=== PATIENT | male | born 1950 | race Two or more races ===

== ENCOUNTER 2024-11-16 12:07 | Inpatient (IN) | payer OTHER ==
[~2024-11-16] VITALS: Ht 170.2 cm; Wt 80.5 kg
--- NOTE | 2024-11-16 13:03 | ED.PDOC ---
HPI Comments 74-year-old male presents with a chief complaint of hypertension. Patient mentions that he had a doctors appointment with his transportation services representative this morning, Dr. Benavidez, and was referred to the ER due to his blood pressure being high. Patients blood pressure in triage was 226/108. Patient denies any headache at this time, but states that he does occasionally get dizzy. Patient is poor historian and does not know what medication he takes. Patient however states compliance with his blood pressure medications. PMHx: HTN PSHx: Bilateral Knee Repair HPI: Poor Historian. REVIEW OF SYSTEMS: CONSTITUTIONAL: Denies acute: fever, diaphoresis, chills, generalized weakness. HEAD: Denies acute: headache, photophobia Eyes: Denies acute: Double vision, vision loss, eye pain, eye discharge. EARS: Denies acute: tinnitus, hearing loss, ear discharge, ear pain, THROAT: Denies acute: sore throat, swelling, difficulty swallowing , pain with swallowing, change in voice. NECK: Denies acute: neck pain, neck swelling, stiff neck. HEART: Denies acute : chest pain, palpitations, LUNGS: Denies acute: SOB, wheezing, cough, hemoptysis ABDOMEN: Denies acute: abdominal pain, Nausea, Vomiting, diarrhea, melena , hematemesis, hematochezia SKIN: Denies acute: rash, redness, lesions, itchiness. EXTREMITIES: Denies acute: calf pain, numbness, tingling, weakness, denies pain in extremity. Denies acute: Low back pain. Neuro: Denies acute: focal neurological deficit, motor or sensory focal neurological deficit, tremors, seizure like activity, confusion, dizziness, change in mental status, loss of bowel or bladder function, cauda equina like symptoms. : Denies acute: dysuria, hematuria, flank pain, increase in urinary frequency. PSYCH: Denies acute: hallucination, suicidal ideation, homicidal ideation. PHYSICAL EXAM: General: ---no-----acute distress, awake and alert. Head: normocephalic, atraumatic. Neck: supple, trachea is midline, no swelling. Throat: Normal phonation. Eyes:, no erythema, no purulent discharge, no proptosis, no icterus. Heart: regular rate, regular rhythm, no significant murmur appreciated. Lungs: no apparent respiratory distress, Able to speak in full sentences. No wheezing, no rhonchi, no crackles. No stridors Clear to auscultation bilaterally. Abdomen: non tender to palpation, non distended, soft, no guarding, no rebound, + bowel sounds. Neuro: Awake, Alert, oriented to name, self, situation, follows commands GCS=15. Speech is normal. Skin: no petechia, no purpura, no cyanosis, non-pale, not jaundice. Lower extremities: --no - Pitting edema no deformity, no focal swelling, no calf TTP. Makes eye contact. moves all four extremities. Face: no apparent facial droop. Ambulating in the ED independently. No nystagmus. No nuchal rigidity, Kernig's sign, Brudzinski's sign, no meningeal signs. ED COURSE: Chief Complaint: High Blood Pressure Time Seen by MD: 12:45 Primary Care Provider: CHIKA Allergies: Coded Allergies: NO KNOWN ALLERGIES (Unverified , 11/16/24) Home Meds Active Scripts Misc. Devices (Blood Pressure Monitor) Monitor Kit, EA XX DAILY, #1 CHECK BLOOD PRESSURE DAILY AND KEEP SYSTOLIC BP 100-140 AND DIASTOLIC BP 60-80 Prov:SUNSHINE NASCIMENTO MD 11/17/24 Clonidine Hydrochloride (Clonidine Hcl) 0.1 Mg Tab, 0.1 MG PO TID PRN, #30 TAB TAKE IT NEEDED FOR SYSTOLIC BLOOD PRESSURE ABOVE 150 OR DIASTOLIC BLOOD PRESSURE ABOVE 90 Prov:SUNSHINE NASCIMENTO MD 11/17/24 Hydralazine Hcl (Hydralazine Hcl) 50 Mg Tab, 1 TAB PO BID, #90 TAB 3 Refills Prov:SUNSHINE NASCIMENTO MD 11/17/24 Metoprolol Succinate (Metoprolol Succinate Er) 25 Mg Tab, 1 TAB PO DAILY, #30 TAB 1 Refill Prov:SUNSHINE NASCIMENTO MD 11/17/24 Lisinopril (Lisinopril) 40 Mg Tab, 1 TAB PO DAILY@DINNER, #90 TAB 5 Refills Prov:SUNSHINE NASCIMENTO MD 11/17/24 Hydrochlorothiazide (Hydrochlorothiazide) 25 Mg Tab, 1 TAB PO DAILY, #30 TAB 5 Refills Prov:SUNSHINE NASCIMENTO MD 11/17/24 Reported Medications Atorvastatin Calcium (ATORVASTATIN CALCIUM) 10 Mg Tab, 1 TAB PO DAILY, #30 TAB 5 Refills 11/16/24 Aspirin (Aspirin Ec) 81 Mg Tab, 81 MG PO DAILY, TAB 11/16/24 Alendronate Sodium (Alendronate Sodium) 70 Mg Tab, 1 TAB PO QWEEKLY, #4 TAB 3 Refills 11/16/24 Allopurinol (ZYLOPRIM TABLET) 100 Mg Tb, 1 TAB PO DAILY, #30 TAB 5 Refills 11/16/24 Atorvastatin Calcium (Lipitor) 10 Mg Tab, 1 TAB PO QPM, #90 TAB 1 Refill 11/16/24 Tamsulosin Hcl (Flomax) 0.4 Mg Cap, 1 CAP PO DAILY, #30 CAP 11 Refills 11/16/24 Levothyroxine Sodium (Levothyroxine Sodium) 25 Mcg Tab, 1 TAB PO DAILY, #30 TAB 5 Refills 11/16/24 Meclizine HCl (Meclizine) 25 Mg Chw, 25 MG PO, CHW 11/16/24 Information Source: Patient Mode of Arrival: Ambulatory Past Medical History PAST MEDICAL HISTORY: HTN Surgical History: Denies all surgeries Family History Family History: Reviewed,noncontributory to illness Social History Smoker: Non-Smoker Alcohol: Denies ETOH Use Drugs: Denies Drug Use Lives In: Home Was a procedure done? Was a procedure done?: No CP Differential Dx Differential Diagnosis: N/A Differential Diagnosis: Other (DDX include renal disease, thyroid disease, electrolyte abnormality, increased salt intake, medications non-compliance, undiagnosed HTN, Hypertensive crisis, hypertensive urgency., drug toxicity.) X-Ray, Labs, Meds, VS Vital Signs Date Time Temp Pulse Resp B/P (MAP) Pulse Ox O2 Delivery O2 Flow Rate FiO2 11/16/24 15:52 97.6 60 18 200/90 (126) 96 97.6 11/16/24 15:43 60 200/90 11/16/24 15:43 60 200/90 11/16/24 13:39 62 224/90 11/16/24 13:28 63 16 95 Room Air* 0 21 6/11/25 13:28 98.2 62 19 224/90 (134) 94 98.2 11/16/24 12:45 64 11/16/24 12:35 98.0 67 18 226/108 (147) 96 98.0 205/94 (131) Lab Test 11/16/24 16:04 11/16/24 14:11 11/16/24 13:06 11/16/24 12:44 Range/Units Troponin I High Sensitivity 8 7 6 </=54 ng/L White Blood Count 6.9 4.4-10.8 10^3/uL Red Blood Count 5.19 4.5-5.90 10^6/uL Hemoglobin 15.6 13.5-17.5 g/dL Hematocrit 44.9 41.0-53.0 % Mean Corpuscular Volume 86.5 80.0-100.0 fL Mean Corpuscular Hemoglobin 30.0 28.0-32.0 pg Mean Corpuscular Hemoglobin Concent 34.6 32.0-36.0 g/dL Red Cell Distribution Width 15.2 H 11.8-14.3 % Platelet Count 126 L 140-450 10^3/uL Mean Platelet Volume 8.9 6.9-10.8 fL Neutrophils (%) (Auto) 52.6 37.0-80.0 % Lymphocytes (%) (Auto) 33.6 10.0-50.0 % Monocytes (%) (Auto) 5.5 0.0-12.0 % Eosinophils (%) (Auto) 7.1 H 0.0-7.0 % Basophils (%) (Auto) 1.2 0.0-2.0 % Neutrophils # (Auto) 3.6 1.6-8.6 10 ^3/uL Lymphocytes # (Auto) 2.3 0.4-5.4 10 ^3/uL Monocytes # (Auto) 0.4 0-1.3 10 ^3/uL Eosinophils # (Auto) 0.5 0-0.8 10 ^3/uL Basophils # (Auto) 0.1 0-0.2 10 ^3/uL Nucleated Red Blood Cells 0.1 % Sodium Level 143 136-145 mmol/L Potassium Level 3.5 3.5-5.1 mmol/L Chloride Level 107 98-107 mmol/L Carbon Dioxide Level 24 20-31 mmol/L Anion Gap 12 5-15 Blood Urea Nitrogen 10 9-23 mg/dL Creatinine 0.94 0.700-1.30 mg/dL Glomerular Filtration Rate Calc 84 >90 mL/min BUN/Creatinine Ratio 10.6 10.0-20.0 Serum Glucose 104 74-106 mg/dL Calcium Level 10.2 8.7-10.4 mg/dL Total Bilirubin 1.0 0.2-1.0 mg/dL Aspartate Amino Transferase (AST) 26 13-40 U/L Alanine Aminotransferase (ALT) 23 7-40 U/L Alkaline Phosphatase 96 46-116 U/L B-Type Natriuretic Peptide 113.20 0-100 pg/mL Total Protein 8.1 5.7-8.2 g/dL Albumin 4.8 3.2-4.8 g/dL Urine Color Colorless Yellow Urine Clarity Clear Clear Urine pH 6.5 5.0-9.0 Urine Specific [place] 1.006 1.001-1.035 Urine Protein Negative Negative Urine Ketones Negative Negative Urine Blood 1+ H Negative /uL Urine Nitrite Negative Negative Urine Bilirubin Negative Negative Urine Urobilinogen Normal Negative mg/dL Urine Leukocyte Esterase Negative Negative /uL Urine RBC 4 0 - 3 /hpf Urine Microscopic WBC < 1 0-3 /HPF Urine Squamous Epithelial Cells None seen <5 /hpf Urine Bacteria None seen None Seen /hpf Urine Glucose Normal Normal mg/dL PATIENT: TAWNY CATHERINECCT: [id number]: [id number] : 1950 LOC: ER ROOM / BED: / AGE / SEX: 74 / M ADM STATUS: REG ER SERVICE 1239 ORDERING PHYSICIAN: MEGAN VENEGAS DO PROCEDURE(s): HWOCT - HEAD WITHOUT CONTRAST REASON: HTN ORDER NUMBER(s): [id number], ACCESSION NUMBER(s): [id number] CT HEAD WITHOUT CONTRAST Indication: HTN EXAM DATE: 11/16/2024 12:51 PM COMPARISON: None TECHNIQUE: CT of the head without intravenous contrast. RADIATION DOSE: CTDIvol: 55.02 mGy, DLP: 974.26 mGy*cm FINDINGS: There is subtle hyperdensity in the right occipital lobe measuring 9 mm. There is no extra-axial fluid, mass, mass effect or midline shift. The ventricles are midline and normal in size. Basilar cisterns are patent. There are mild periventricular and subcortical white matter chronic microvascular ischemic changes. Mild global cerebral volume loss. The paranasal sinuses and mastoids are well-pneumatized. Imaged portion of the orbits are unremarkable. IMPRESSION: 1. Subtle hyperdensity in the right occipital lobe measuring 9 mm. Recommend MRI brain with and without contrast to evaluate and exclude hemorrhage/subacute hemorrhage, vascular malformation/DVA. 2. Mild chronic microvascular ischemic changes. 3. Mild global cerebral volume loss. ATED BY: ESTHELA MUÑIZ MD DICTATED DATE/TIME: 11/16/241324 SIGNED BY: ESTHELA MUÑIZ MD SIGNED DATE/TIME: 11/16/241324 PATIENT: BRANDO CATHERINE ACCT: [id number] UNIT: [id number] : 1950 LOC: ER ROOM / BED: / AGE / SEX: 74 / M ADM STATUS: REG ER SERVICE 1239 ORDERING PHYSICIAN: MEGAN VENEGAS DO PROCEDURE(s): CXRP - CHEST PORTABLE REASON: HTN ORDER NUMBER(s): [id number], ACCESSION NUMBER(s): [id number] CHEST RADIOGRAPH Indication: HTN Technique: Single frontal view of the chest was obtained Comparison: None FINDINGS: Lines and Tubes: None Lungs: No focal consolidation. Elevation of the right hemidiaphragm. Pleura: No effusion. No pneumothorax. Cardiomediastinal contours: Unremarkable Bones: No acute osseous abnormality. IMPRESSION: No acute cardiopulmonary disease. ATED BY: IZZY MARTINO DO DICTATED DATE/TIME: 11/16/24 1314 SIGNED BY: IZZY MARTINO DO SIGNED DATE/TIME: 11/16/241313 [place] [address] Ph: [phone] DIAGNOSTIC IMAGING Diagnostic Imaging Report : [id number] Signed PATIENT: BRANDO CATHERINE ACCT: [id number] UNIT: [id number] : 1950 LOC: OVERFLOW ROOM / BED: 1018-ERD / A AGE / SEX: 74 / M ADM STATUS: ADM IN SERVICE 1626 ORDERING PHYSICIAN: MEGAN VENEGAS DO PROCEDURE(s): HDWCT - HEAD CONTRAST ONLY REASON: HTN ORDER NUMBER(s): [id number], ACCESSION NUMBER(s): [id number] EXAM: CT HEAD CONTRAST ONLY INDICATION: HTN TECHNIQUE: CT of the head without intravenous contrast. Radiation Dose Information: CT Dose: CTDI volume is 54.72 mGy. Dose-length product is 968.76 mGy*cm The dose indicators for CT are the volume Computed Tomography (CT) Dose Index (CTDIvol) and the Dose Length Product (DLP), and are measured in units of mGy and mGy-cm, respectively. These indicators are not patient dose, but values generated from the CT scanner acquisition factors. The report includes radiation exposure data for exposures received during this examination. COMPARISON: CT HEAD WITHOUT CONTRAST on DOS: 11/16/24 FINDINGS: There is no evidence of acute intracranial hemorrhage, extra-axial collection, mass effect, midline shift, herniation or hydrocephalus. The ventricles, sulci and cisterns are age appropriate. The moore-white differentiation is intact. Patchy periventricular and subcortical white matter hypoattenuation is nonspecific but may be related to small vessel ischemic disease. The visualized paranasal sinuses and mastoid air cells are clear. The surrounding soft tissues and osseous structures are unremarkable. IMPRESSION: 1. No acute intracranial abnormality. 2. No enhancing masses. 3. No CT findings displaced skull fractures. ATED BY: SHIRLEY MEDINA Jr., DO DICTATED DATE/TIME: 11/16/241721 SIGNED BY: SHIRLEY MEDINA Jr., SIGNED DATE/TIME: 11/16/241721 CC: Time of 1ST Reevaluation: 13:15 Reevaluation 1ST: Unchanged Time of 2ND Reevaluation: 16:27 (The case was discussed with the admitting team (HPI, physical exam, labs and diagnostic tests that were available at the time of disposition, ED course, treatment plan) on the phone. They agreed to admit the patient to their service and assume care of this patient from this point forward. --- SARITHA. CT BRAIN WITH CONTRAST IS STILL PENDING) Patient Education/Counseling: Diagnosis, Treatment Family Education/Counseling: No Family Present Comments Patient presented with the above HPI.---hypertensive crisis---workup was ini tiated. patient was found with the above mentioned diagnosis. Patient denies any associated symptoms. the following medications were ordered: please refer to order lists of meds and tests obtained by myself Dr. Venegas. Patient ED course and VS have been stabilized. Patient has been reassessed in the ED and remained in a stable condition. Pertinent incidental findings were discussed with the patient and/or family. Patient/family voices understanding and is agreeable with plan. Patient has been observed in the ED adequate length of time to insure improvement/stability. Escalation of care considered: Consideration of escalation to observation or admission CT scan of the head was obtained which shows some nonspecific findings. CT scan of the head with contrast was obtained to rule out any potential bleed. Patient was ADMITTED to the medicine team for further evaluation and treatment of their presentation. All the reports of any imaging studies that were ordered by myself were reviewed by myself. Departure 1 Departure Time of Disposition: 14:50 Impression: Primary Impression: Hypertensive urgency Disposition: ADMITTED INPATIENT Admit to: Tele Condition: Guarded e-Prescriptions [facility]. Devices (Blood Pressure Monitor) Monitor Kit EA XX DAILY, #1 CHECK BLOOD PRESSURE DAILY AND KEEP SYSTOLIC BP 100-140 AND DIASTOLIC BP 60-80 Prov: SUNSHINE NASCIMENTO MD 11/17/24 Clonidine Hydrochloride (Clonidine Hcl) 0.1 Mg Tab 0.1 MG PO TID PRN, #30 TAB TAKE IT NEEDED FOR SYSTOLIC BLOOD PRESSURE ABOVE 150 OR DIASTOLIC BLOOD PRESSURE ABOVE 90 Prov: SUNSHINE NASCIMENTO MD 11/17/24 Hydralazine Hcl (Hydralazine Hcl) 50 Mg Tab 1 TAB PO BID, #90 TAB 3 Refills Prov: SUNSHINE NASCIMENTO MD 11/17/24 Metoprolol Succinate (Metoprolol Succinate Er) 25 Mg Tab 1 TAB PO DAILY, #30 TAB 1 Refill Prov: SUNSHINE NASCIMENTO MD 11/17/24 Lisinopril (Lisinopril) 40 Mg Tab 1 TAB PO DAILY@DINNER, #90 TAB 5 Refills Prov: SUNSHINE NASCIMENTO MD 11/17/24 Hydrochlorothiazide (Hydrochlorothiazide) 25 Mg Tab 1 TAB PO DAILY, #30 TAB 5 Refills Prov: SUNSHINE NASCIMENTO MD 11/17/24 Discharged With: Self Critical Care Note Critical Care Time?: Yes (55 min-critical care time only) Heart Score Heart Score: Heart Score Response (Comments) Value History N/A 0 EKG N/A 0 Age N/A 0 Risk Factors N/A 0 Troponin N/A 0 Total 0 I personally scribed for MEGAN VENEGAS DO ([email or web address]) on 11/16/24 at 13:03. Electronically submitted by William De Los Santos ([email or web address]). I personally scribed for MEGAN VENEGAS DO ([email or web address]) on 11/16/24 at 13:50. Electronically submitted by William De Los Santos ([email or web address]). I personally scribed for MEGAN VENEGAS DO ([email or web address]) on 11/16/24 at 13:51. Electronically submitted by William De Los Santos ([email or web address]). I personally scribed for MEGAN VENEGAS DO ([email or web address]) on 11/16/24 at 20:12. Electronically submitted by William De Los Santos ([email or web address]). MEGAN VENEGAS DO Nov 16, 2024 13:03
[2024-11-16 13:07] LABS: Urine Bacteria None Seen /hpf (None Seen)
--- NOTE | 2024-11-16 13:17 | DVH ---
CHEST RADIOGRAPH Indication: HTN Technique: Single frontal view of the chest was obtained Comparison: None FINDINGS: Lines and Tubes: None Lungs: No focal consolidation. Elevation of the right hemidiaphragm. Pleura: No effusion. No pneumothorax. Cardiomediastinal contours: Unremarkable Bones: No acute osseous abnormality. IMPRESSION: No acute cardiopulmonary disease.
[2024-11-16 13:27] LABS: Urine Blood 1+ /uL (Negative); Urine Clarity Clear (Clear); Urine Color Colorless (Yellow); Urine Protein, UAD Negative (Negative); Urine Specific Gravity 1.006 (1.001-1.035); Urine Squamous Epithelial Cell None Seen /hpf (<5); Urine Urobilinogen Normal (Negative); Urine WBC < 1 /HPF (0-3); Urine pH 6.5 (5.0-9.0)
--- NOTE | 2024-11-16 13:27 | DVH ---
CT HEAD WITHOUT CONTRAST Indication: HTN EXAM DATE: 11/16/2024 12:51 PM COMPARISON: None TECHNIQUE: CT of the head without intravenous contrast. RADIATION DOSE: CTDIvol: 55.02 mGy, DLP: 974.26 mGy*cm FINDINGS: There is subtle hyperdensity in the right occipital lobe measuring 9 mm. There is no extra-axial flui d, mass, mass effect or midline shift. The ventricles are midline and normal in size. Basilar cistern s are patent. There are mild periventricular and subcortical white matter chronic microvascular ische rossi changes. Mild global cerebral volume loss. The paranasal sinuses and mastoids are well-pneumatized. Imaged portion of the orbits are unremarkabl e. IMPRESSION: 1. Subtle hyperdensity in the right occipital lobe measuring 9 mm. Recommend MRI brain with and with out contrast to evaluate and exclude hemorrhage/subacute hemorrhage, vascular malformation/DVA. 2. Mild chronic microvascular ischemic changes. 3. Mild global cerebral volume loss.
[2024-11-16 13:28] VITALS: PULSE 63; RESP 16; O2SAT 95
[2024-11-16 13:30] LABS: Basophils # (auto) 0.1 10 ^3/uL (0-0.2); Basophils % (auto) 1.2 % (0.0-2.0); Eosinophils # (auto) 0.5 10 ^3/uL (0-0.8); Eosinophils % (auto) 7.1 % (0.0-7.0); Hematocrit 44.9 % (41.0-53.0); Hemoglobin 15.6 g/dL (13.5-17.5); Lymphocytes # (auto) 2.3 10 ^3/uL (0.4-5.4); Lymphocytes % (auto) 33.6 % (10.0-50.0); Mean Corpuscular Hgb Conc. 34.6 g/dL (32.0-36.0); Mean Corpuscular Volume 86.5 fL (80.0-100.0); Monocytes # (auto) 0.4 10 ^3/uL (0-1.3); Monocytes % (auto) 5.5 % (0.0-12.0); Neutrophils # (auto) 3.6 10 ^3/uL (1.6-8.6); Neutrophils % (auto) 52.6 % (37.0-80.0); Nucleated Red Blood Cells % 0.1 %; Platelet Count (auto) 126 10^3/uL (140-450); Red Blood Cells 5.19 10^6/uL (4.5-5.90); Red Cell Distribution Width 15.2 % (11.8-14.3); White Blood Cell 6.9 10^3/uL (4.4-10.8)
[2024-11-16 13:39] LABS: Alanine Aminotransferase 23 U/L (7-40); Albumin 4.8 g/dL (3.2-4.8); Alkaline Phosphatase 96 U/L (46-116); Anion Gap 12 (5-15); Aspartate Aminotransferase 26 U/L (13-40); BUN/Creatinine Ratio 10.6 (10.0-20.0); Blood Urea Nitrogen 10 mg/dL (9-23); Calcium 10.2 mg/dL (8.7-10.4); Carbon Dioxide 24 mmol/L (20-31); Chloride 107 mmol/L (98-107); Glucose 104 mg/dL (74-106); Potassium 3.5 mmol/L (3.5-5.1); Sodium 143 mmol/L (136-145); Total Protein 8.1 g/dL (5.7-8.2)
[2024-11-16] MEDS: LABETALOL HCL 20 MG/4 ML VL IV ONE ×2 (13:39→15:43)
[2024-11-16] MEDS ORDERED: LABETALOL HCL 20 MG/4 ML VL IV PRN (16:30)
[2024-11-16] MEDS ORDERED: NITROGLYCERIN 0.4 MG SL TAB SL PRN ×2 (16:30→17:45)
[2024-11-16] MEDS ORDERED: ONDANSETRON HCL 4 MG/2 ML VIAL IV PRN (16:30)
[2024-11-16] MEDS ORDERED: ACETAMINOPHEN 325 MG TAB PO PRN (16:30)
[2024-11-16] MEDS ORDERED: MORPHINE SULFATE INJ 2 MG/ml SYRG IV PRN (16:30)
[2024-11-16] MEDS ORDERED: HYDROcodone-ACET 5/325MG TAB PO PRN (16:30)
[2024-11-16] MEDS: cloNIDine HCL 0.1 MG TAB PO PRN (16:52)
[2024-11-16] MEDS: LABETALOL HCL 200 MG TAB PO SCH (16:53)
[2024-11-16] MEDS: LOSARTAN POTASSIUM 50 MG TAB PO SCH (16:53)
--- NOTE | 2024-11-16 17:04 | DVHINCON2 ---
Date of service: Nov 16, 2024 History of Present Illness 74 yo M office pt of mine, hx of HTN, non compliance sent from office with SBP >200 . pt had feeling "like drunk" and tired. trops are - Past Medical History reviewed Allergies: Coded Allergies: NO KNOWN ALLERGIES (Unverified , 11/16/24) Current Medications Current Medications Medications (Trade) Dose Ordered Sig/Geetha Route PRN Reason Start Time Stop Time Status Last Admin Nitroglycerin (Ntrostat Sublingual) 0.4 mg Q5MINP PRN SL FOR CHEST PAIN 11/16/24 16:30 11/16/24 16:27 DC Morphine Sulfate 2 mg Q30M PRN IV FOR CHEST PAIN 11/16/24 16:30 11/16/24 16:27 DC Labetalol HCl (Labetalol HCl) 5 mg Q2HPRN PRN IV SBP>180 11/16/24 16:30 Labetalol HCl (Normodyne Tablet) 200 mg Q12HR PO 11/16/24 16:30 11/16/24 16:53 Losartan Potassium (Cozaar Tablet) 50 mg BID PO 11/16/24 16:30 11/16/24 16:53 Clonidine HCl (Catapres Tablet) 0.1 mg Q4HP PRN PO SBP>160 or DBP>105 11/16/24 16:30 11/16/24 16:52 Ondansetron HCl (Zofran) 4 mg Q4HPRN PRN IV NAUSEA / VOMITING 11/16/24 16:30 Acetaminophen (Tylenol Tablet) 650 mg Q6HP PRN PO MODERATE PAIN (4-6 PAIN SCALE) 11/16/24 16:30 Acetaminophen/ Hydrocodone Bitart ([place] 5/325MG Tab) 1 tab Q6HPRN PRN PO SEVERE PAIN (7-10 PAIN SCALE) 11/16/24 16:30 Review of Systems 10 pt ros otherwise negative Vital Signs Vital Signs Date Time Temp Pulse Resp B/P (MAP) Pulse Ox O2 Delivery O2 Flow Rate FiO2 11/16/24 16:53 200/88 11/16/24 16:53 68 11/16/24 16:26 16 100 11/16/24 15:52 97.6 97.6 11/16/24 13:28 Room Air* 0 21 Physical Exam nad s1 s2 rrr ctab soft nt/nd no edema Labs/Diagnostic Data Labs Test 11/16/24 16:04 11/16/24 13:06 11/16/24 12:44 Range/Units Troponin I High Sensitivity 8 </=54 ng/L White Blood Count 6.9 4.4-10.8 10^3/uL Red Blood Count 5.19 4.5-5.90 10^6/uL Hemoglobin 15.6 13.5-17.5 g/dL Hematocrit 44.9 41.0-53.0 % Mean Corpuscular Volume 86.5 80.0-100.0 fL Mean Corpuscular Hemoglobin 30.0 28.0-32.0 pg Mean Corpuscular Hemoglobin Concent 34.6 32.0-36.0 g/dL Red Cell Distribution Width 15.2 H 11.8-14.3 % Platelet Count 126 L 140-450 10^3/uL Mean Platelet Volume 8.9 6.9-10.8 fL Neutrophils (%) (Auto) 52.6 37.0-80.0 % Lymphocytes (%) (Auto) 33.6 10.0-50.0 % Monocytes (%) (Auto) 5.5 0.0-12.0 % Eosinophils (%) (Auto) 7.1 H 0.0-7.0 % Basophils (%) (Auto) 1.2 0.0-2.0 % Neutrophils # (Auto) 3.6 1.6-8.6 10 ^3/uL Lymphocytes # (Auto) 2.3 0.4-5.4 10 ^3/uL Monocytes # (Auto) 0.4 0-1.3 10 ^3/uL Eosinophils # (Auto) 0.5 0-0.8 10 ^3/uL Basophils # (Auto) 0.1 0-0.2 10 ^3/uL Nucleated Red Blood Cells 0.1 % Sodium Level 143 136-145 mmol/L Potassium Level 3.5 3.5-5.1 mmol/L Chloride Level 107 98-107 mmol/L Carbon Dioxide Level 24 20-31 mmol/L Anion Gap 12 5-15 Blood Urea Nitrogen 10 9-23 mg/dL Creatinine 0.94 0.700-1.30 mg/dL Glomerular Filtration Rate Calc 84 >90 mL/min BUN/Creatinine Ratio 10.6 10.0-20.0 Serum Glucose 104 74-106 mg/dL Calcium Level 10.2 8.7-10.4 mg/dL Total Bilirubin 1.0 0.2-1.0 mg/dL Aspartate Amino Transferase (AST) 26 13-40 U/L Alanine Aminotransferase (ALT) 23 7-40 U/L Alkaline Phosphatase 96 46-116 U/L B-Type Natriuretic Peptide 113.20 0-100 pg/mL Total Protein 8.1 5.7-8.2 g/dL Albumin 4.8 3.2-4.8 g/dL Urine Color Colorless Yellow Urine Clarity Clear Clear Urine pH 6.5 5.0-9.0 Urine Specific [place] 1.006 1.001-1.035 Urine Protein Negative Negative Urine Ketones Negative Negative Urine Blood 1+ H Negative /uL Urine Nitrite Negative Negative Urine Bilirubin Negative Negative Urine Urobilinogen Normal Negative mg/dL Urine Leukocyte Esterase Negative Negative /uL Urine RBC 4 0 - 3 /hpf Urine Microscopic WBC < 1 0-3 /HPF Urine Squamous Epithelial Cells None seen <5 /hpf Urine Bacteria None seen None Seen /hpf Urine Glucose Normal Normal mg/dL Assessment malignant HTN obesity non compliance HL ckd Plan/Recommendation acs ruled out check echo start clonidine po start po hydralazine cont ARB, cont BB Plan discussed with: Patient CHRISTEL FARR MD Nov 16, 2024 17:03
[2024-11-16] MEDS: IOHEXOL 300 MG/ML 100ML BOTTLE IJ ONE (17:06)
--- NOTE | 2024-11-16 17:24 | DVH ---
EXAM: CT HEAD CONTRAST ONLY INDICATION: HTN TECHNIQUE: CT of the head without intravenous contrast. Radiation Dose Information: CT Dose: CTDI volume is 54.72 mGy. Dose-length product is 968.76 mGy*cm The dose indicators for CT are the volume Computed Tomography (CT) Dose Index (CTDIvol) and the Dose Length Product (DLP), and are measured in units of mGy and mGy-cm, respectively. These indicators are not patient dose, but values generated from the CT scanner acquisition factors. The report includes radiation exposure data for exposures received during this examination. COMPARISON: CT HEAD WITHOUT CONTRAST on DOS: 11/16/24 FINDINGS: There is no evidence of acute intracranial hemorrhage, extra-axial collection, mass effect, midline s hift, herniation or hydrocephalus. The ventricles, sulci and cisterns are age appropriate. The moore-white differentiation is intact. Patchy periventricular and subcortical white matter hypoattenuation is nonspecific but may be related to small vessel ischemic disease. The visualized paranasal sinuses and mastoid air cells are clear. The surrounding soft tissues and osseous structures are unremarkable. IMPRESSION: 1. No acute intracranial abnormality. 2. No enhancing masses. 3. No CT findings displaced skull fractures.
[2024-11-16 20:00] VITALS: PULSE 77; RESP 18; O2SAT 97
[2024-11-16 21:17] VITALS: BP 160/85; PULSE 65; RESP 18; TEMP 97.2; O2SAT 96
[2024-11-16 22:00] VITALS: BP 160/85; PULSE 65; RESP 17; TEMP 97.2; O2SAT 96
[2024-11-16 22:18] VITALS: PULSE 65; RESP 20
[2024-11-16] MEDS: hydrALAZINE HCL 25 MG TAB PO SCH (23:11)
[2024-11-16] MEDS: cloNIDine HCL 0.1 MG TAB PO SCH (23:12)
[2024-11-16] MEDS ORDERED: LISI40TA16 PO (23:13)
[2024-11-16] MEDS ORDERED: ATOR10TA52 PO (23:13)
[2024-11-16] MEDS ORDERED: HYDR25TA4 PO (23:13)
[2024-11-16] MEDS ORDERED: METO25TA93 PO (23:13)
[2024-11-16] MEDS ORDERED: MECL25CH38 PO (23:13)
[2024-11-16] MEDS ORDERED: ALEN70TA74 PO (23:13)
[2024-11-16] MEDS ORDERED: TAMS-35 PO (23:13)
[2024-11-16] MEDS ORDERED: ALL100T PO (23:13)
[2024-11-16] MEDS ORDERED: ATOR10TA PO (23:13)
[2024-11-16] MEDS ORDERED: LEVO25TA6 PO (23:13)
[2024-11-16] MEDS ORDERED: ASPI81TA28 PO (23:13)
[2024-11-17] VITALS (7 sets, daily range): BP systolic 131–178; BP diastolic 68–92; PULSE 50–62; RESP 16–18; TEMP 96.1–97.6; O2SAT 95–98
--- NOTE | 2024-11-17 00:30 | DVHHP2 ---
BENTLEY KELLY ARTIST MODEL 11/17/24 0030: History of Present Illness Reason for Visit: Uncontrolled hypertension History of Present Illness 74-year-old male with past medical history of hypertension presents with complaints of uncontrolled high blood pressure. 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 On arrival to the emergency department patient's blood pressure was noted to be 226/108. Patient also endorses dizziness. States he is compliant with taking his blood pressure medications. However does not know what medications he is on. At this time patient denies fevers, chills, shortness of breath, chest pain, palpitations, leg swelling. States dizziness has improved. Cardiovascular: HTN, hyperipidemia Smoke: No ALCOHOL: none Drugs: None Lives: with Family Review of Systems Constitutional: No: Fever, Chills, Sweats, Weakness, Malaise, Other Eyes: No: Pain, Vision change, Conjunctivae inflammation, Eyelid inflammation, Other, Redness ENT: No: Ear pain, Ear discharge, Nose pain, Nose discharge, Nose congestion, Mouth pain, Mouth swelling, Throat pain, Throat swelling, Other Respiratory: No: Cough, Dry, Shortness of breath, SOB with excertion, Wheezing, Hemoptysis, Pleuritic Pain, Sputum, Wheezing, Other Cardiovascular: Lt Headedness; No: Chest Pain, Palpitations, Orthopnea, Paroxysmal Noc. Dyspnea, Edema, Other Gastrointestinal: No: Nausea, Vomiting, Abdominal Pain, Diarrhea, Constipation, Melena, Hematochezia, Other Genitourinary: No Dysuria, No Frequency, No Incontinence, No Hematuria, No Retention, No Other Musculoskeletal: No: other, neck pain, shoulder pain, arm pain, back pain, hand pain, leg pain, foot pain Skin: No: Rash, Lesions, Jaundice, Bruising, Other Neurological: No: Weakness, Numbness, Incoordination, Change in speech, Confusion, Seizures, Other Allergies: Coded Allergies: NO KNOWN ALLERGIES (Unverified , 11/16/24) Medications Current Medications Medications Dose Ordered Sig/Geetha Route Start Time Stop Time Status Last Admin Dose Admin Labetalol HCl 5 mg Q2HPRN PRN IV 11/16/24 16:30 Labetalol HCl 200 mg Q12HR PO 11/16/24 16:30 11/16/24 23:13 200 MG Clonidine HCl 0.1 mg Q4HP PRN PO 11/16/24 16:30 11/16/24 16:52 0.1 MG Ondansetron HCl 4 mg Q4HPRN PRN IV 11/16/24 16:30 Acetaminophen 650 mg Q6HP PRN PO 11/16/24 16:30 Acetaminophen/ Hydrocodone Bitart 1 tab Q6HPRN PRN PO 11/16/24 16:30 Clonidine HCl 0.1 mg TID PO 11/16/24 22:00 11/16/24 23:12 0.1 MG Hydralazine HCl 25 mg Q8HR PO 11/16/24 22:00 11/16/24 23:11 25 MG Nitroglycerin 0.4 mg Q5MINP PRN SL 11/16/24 17:45 Exam Vital Signs Vital Signs Date Time Temp Pulse Resp B/P (MAP) Pulse Ox O2 Delivery O2 Flow Rate FiO2 11/16/24 23:13 65 160/85 11/16/24 22:00 97.2 17 96 97.2 11/16/24 20:00 Room Air* 0 21 General Appearance: Alert, Oriented X3, Cooperative, No acute distress HEENT: Atraumatic, PERRLA, EOMI Respiratory: Clear to auscultation, Normal air movement Cardiovascular: Regular rate, Normal S1, Normal S2 Abdominal: Normal bowel sounds, Soft, No tenderness Extremities: No clubbing Skin: No rashes, No breakdown Neuro: Normal speech, Strength at 5/5 X4 ext Psych/Mental Status: Mental status NL, Mood NL Labs/Xrays Labs Test 11/16/24 16:04 11/16/24 13:06 11/16/24 12:44 Range/Units Troponin I High Sensitivity 8 </=54 ng/L White Blood Count 6.9 4.4-10.8 10^3/uL Red Blood Count 5.19 4.5-5.90 10^6/uL Hemoglobin 15.6 13.5-17.5 g/dL Hematocrit 44.9 41.0-53.0 % Mean Corpuscular Volume 86.5 80.0-100.0 fL Mean Corpuscular Hemoglobin 30.0 28.0-32.0 pg Mean Corpuscular Hemoglobin Concent 34.6 32.0-36.0 g/dL Red Cell Distribution Width 15.2 H 11.8-14.3 % Platelet Count 126 L 140-450 10^3/uL Mean Platelet Volume 8.9 6.9-10.8 fL Neutrophils (%) (Auto) 52.6 37.0-80.0 % Lymphocytes (%) (Auto) 33.6 10.0-50.0 % Monocytes (%) (Auto) 5.5 0.0-12.0 % Eosinophils (%) (Auto) 7.1 H 0.0-7.0 % Basophils (%) (Auto) 1.2 0.0-2.0 % Neutrophils # (Auto) 3.6 1.6-8.6 10 ^3/uL Lymphocytes # (Auto) 2.3 0.4-5.4 10 ^3/uL Monocytes # (Auto) 0.4 0-1.3 10 ^3/uL Eosinophils # (Auto) 0.5 0-0.8 10 ^3/uL Basophils # (Auto) 0.1 0-0.2 10 ^3/uL Nucleated Red Blood Cells 0.1 % Sodium Level 143 136-145 mmol/L Potassium Level 3.5 3.5-5.1 mmol/L Chloride Level 107 98-107 mmol/L Carbon Dioxide Level 24 20-31 mmol/L Anion Gap 12 5-15 Blood Urea Nitrogen 10 9-23 mg/dL Creatinine 0.94 0.700-1.30 mg/dL Glomerular Filtration Rate Calc 84 >90 mL/min BUN/Creatinine Ratio 10.6 10.0-20.0 Serum Glucose 104 74-106 mg/dL Calcium Level 10.2 8.7-10.4 mg/dL Total Bilirubin 1.0 0.2-1.0 mg/dL Aspartate Amino Transferase (AST) 26 13-40 U/L Alanine Aminotransferase (ALT) 23 7-40 U/L Alkaline Phosphatase 96 46-116 U/L B-Type Natriuretic Peptide 113.20 0-100 pg/mL Total Protein 8.1 5.7-8.2 g/dL Albumin 4.8 3.2-4.8 g/dL Urine Color Colorless Yellow Urine Clarity Clear Clear Urine pH 6.5 5.0-9.0 Urine Specific [place] 1.006 1.001-1.035 Urine Protein Negative Negative Urine Ketones Negative Negative Urine Blood 1+ H Negative /uL Urine Nitrite Negative Negative Urine Bilirubin Negative Negative Urine Urobilinogen Normal Negative mg/dL Urine Leukocyte Esterase Negative Negative /uL Urine RBC 4 0 - 3 /hpf Urine Microscopic WBC < 1 0-3 /HPF Urine Squamous Epithelial Cells None seen <5 /hpf Urine Bacteria None seen None Seen /hpf Urine Glucose Normal Normal mg/dL Assessment/Plan Plan discussed with: Patient My Orders Hypertensive urgency Dizziness Obesity Plan Admit telemetry Cardiology consult. Echocardiogram. As needed antihypertensive for optimal BP management. Continue home medications. MRI brain. Physical therapy evaluation GI ppx pepcid / DVT ppx scd Date of Service: Nov 17, 2024 Billing Provider: SUNSHINE NASCIMENTO MD Common Visit Codes: NOT BILLABLE SUNSHINE NASCIMENTO MD 11/17/24 1500: Review of Systems Allergies: Coded Allergies: NO KNOWN ALLERGIES (Unverified , 11/16/24) Additional Comments Additional Comments Additional Comments Patient's chart is reviewed and discussed with the nurse practitioner. Patient is seen and evaluated. I agree with the nurse practitioner's evaluation, documentation, assessment and care plan as outlined. BENTLEY KELLY NP Nov 17, 2024 00:30 SUNSHINE NASCIMENTO MD Nov 17, 2024 15:00
--- NOTE | 2024-11-17 08:48 | DVH ---
EXAMINATION: MRI BRAIN HEAD WO CONTRAST INDICATION: htn urgency COMPARISON: CT scan of the head performed on 11/16/2024. TECHNIQUE: Multiplanar, multisequence magnetic resonance imaging of the brain was performed without the use of i ntravenous contrast. FINDINGS: No evidence of acute infarct. No intracranial hemorrhage. No mass effect. There is mild periventricular/deep white matter T2/FLAIR hyperintensity is nonspecific, but most comm only associated with chronic microvascular disease. The ventricles and sulci are normal in size for age. Clear basal cisterns. Flow voids in the major intracranial vessels are maintained. No abnormality of the orbits. Paranasal sinuses and mastoid air cells are clear. No abnormality of the visualized osseous structures and extracranial soft tissues. IMPRESSION: 1. No acute infarct, intracranial hemorrhage, mass effect, or hydrocephalus.
--- NOTE | 2024-11-17 12:25 | DVHSR ---
APPROVED REPORT EXAM: Two-dimensional and M-mode echocardiogram with Doppler and color Doppler. Blood Pressure: 157/78 mmHg INDICATION Hypertension RISK FACTORS Height: 5'7", Weight: 177 DIMENSIONS LVDd4.7 (3.8-5.7cm)LA (2D)4.1 (1.9-4.0cm)Aortic Root3.2 (2.0-3.7cm) LVDs2.9 (2.5-4.0cm)LA (MM) (1.9-4.0cm)Aortic Cusp Exc1.3 (1.5-2.0cm) EF (%) 68.0 (55-70%)Rt. Atrium3.7 (1.9-4.0cm)Asc. Aorta3.4 cm IVSd1.3 (0.7-1.1cm)RV (D)3.9 (1.8-2.4cm) PWd1.2 (0.7-1.1cm) Mitral Valve MitralMitral Stenosis E wave0.74m/sMV Mean GR.mmHg A wave0.99m/sMV Peak GR.mmHg E/A ratio0.72D MVAcm2 DECEL [id number] 1/2 [place] Aortic Valve Aortic ValveAortic Stenosis V11.55m/Ro Mean GR.8mmHg V21.86m/Ro Peak GR.14mmHg LVOT Diameter1.8 (1.8-2.4cm)Doppler AVA2.12cm2 Pulmonic Valve V20.91m/s Tricuspid Valve TR Velocity2.78m/s [id number] Other Information Quality : Technically LimitedRhythm : Technically limited study due to body habitus. Conclusion lvef 60% mild to moderate LVH grade 1 diastolic dysfunction normal rv function no severe valve abnormaliteis noted
--- NOTE | 2024-11-17 13:21 | DVHPN2 ---
Progress Note Date Seen: Nov 17, 2024 Medical Necessity Reason Pt with a Central, PICC or Fol: No Subjective Patient reports: Feels better Objective vital signs Vital Sign Date Time Temp Pulse Resp B/P (MAP) Pulse Ox O2 Delivery O2 Flow Rate FiO2 11/17/24 12:58 178/88 11/17/24 09:59 52 11/17/24 09:00 97.3 17 96 97.3 11/17/24 08:10 Room Air* 0 21 Total Intake and Output 11/16/24 11/16/24 11/17/24 15:00 23:00 07:00 Intake Total 100 ml Output Total 300 ml Balance -200 ml medications Current Medications Medications Dose Ordered Sig/Geetha Route Start Time Stop Time Status Last Admin Dose Admin Labetalol HCl 5 mg Q2HPRN PRN IV 11/16/24 16:30 Labetalol HCl 200 mg Q12HR PO 11/16/24 16:30 11/17/24 08:59 200 MG Clonidine HCl 0.1 mg Q4HP PRN PO 11/16/24 16:30 11/16/24 16:52 0.1 MG Ondansetron HCl 4 mg Q4HPRN PRN IV 11/16/24 16:30 Acetaminophen 650 mg Q6HP PRN PO 11/16/24 16:30 Acetaminophen/ Hydrocodone Bitart 1 tab Q6HPRN PRN PO 11/16/24 16:30 Clonidine HCl 0.1 mg TID PO 11/16/24 22:00 11/17/24 12:58 0.1 MG Hydralazine HCl 25 mg Q8HR PO 11/16/24 22:00 11/17/24 12:57 25 MG Nitroglycerin 0.4 mg Q5MINP PRN SL 11/16/24 17:45 Examination: GENERAL:Abnormal, HEENT:Abnormal, LUNGS:Abnormal, CVS:Abnormal, ABDOMEN:Abnormal laboratory and microbiology Laboratory Tests 11/16/24 13:06 Test 11/16/24 13:06 Range/Units Serum Glucose 104 74-106 mg/dL Problem List/Assessment/Plan Problem List/Assessment/Plan malignant htn non compliance obesity HL cont home meds added clonidine and hydralazine echo stable dc home whne stable Plan discussed with: Patient My Orders My Orders Orders - CHRISTEL FARR MD Procedure Category Date Status Time Clonidine Hcl Tablet PHA 11/16/24 In Process (Catapres Tablet) 22:00 Hydralazine Hcl PHA 11/16/24 In Process Tablet (Apresoline 22:00 Date of Service: Nov 17, 2024 Billing Provider: CHRISTEL FARR MD Common Visit Codes: NOT BILLABLE CHRISTEL FARR MD Nov 17, 2024 13:21
[2024-11-17] MEDS ORDERED: HYDR50TA47 PO (15:04)
[2024-11-17] MEDS ORDERED: HYDR25TA4 PO (15:04)
[2024-11-17] MEDS ORDERED: CLON0.1T PO (15:04)
[2024-11-17] MEDS ORDERED: METO25TA93 PO (15:04)
[2024-11-17] MEDS ORDERED: LISI40TA16 PO (15:04)
[2024-11-17] MEDS ORDERED: BLOO1KIT54 XX (15:06)
--- NOTE | 2024-11-17 15:15 | DVHDS2 ---
Discharge Summary Date of Admission Nov 16, 2024 at 16:19 Date of Discharge: Nov 17, 2024 Labs/Diagnostic Data: Laboratory Results Test 11/16/24 16:04 11/16/24 13:06 11/16/24 12:44 Troponin I High Sensitivity 8 ng/L (</=54) White Blood Count 6.9 10^3/uL (4.4-10.8) Red Blood Count 5.19 10^6/uL (4.5-5.90) Hemoglobin 15.6 g/dL (13.5-17.5) Hematocrit 44.9 % (41.0-53.0) Mean Corpuscular Volume 86.5 fL (80.0-100.0) Mean Corpuscular Hemoglobin 30.0 pg (28.0-32.0) Mean Corpuscular Hemoglobin Concent 34.6 g/dL (32.0-36.0) Red Cell Distribution Width 15.2 % (11.8-14.3) Platelet Count 126 10^3/uL (140-450) Mean Platelet Volume 8.9 fL (6.9-10.8) Neutrophils (%) (Auto) 52.6 % (37.0-80.0) Lymphocytes (%) (Auto) 33.6 % (10.0-50.0) Monocytes (%) (Auto) 5.5 % (0.0-12.0) Eosinophils (%) (Auto) 7.1 % (0.0-7.0) Basophils (%) (Auto) 1.2 % (0.0-2.0) Neutrophils # (Auto) 3.6 10 ^3/uL (1.6-8.6) Lymphocytes # (Auto) 2.3 10 ^3/uL (0.4-5.4) Monocytes # (Auto) 0.4 10 ^3/uL (0-1.3) Eosinophils # (Auto) 0.5 10 ^3/uL (0-0.8) Basophils # (Auto) 0.1 10 ^3/uL (0-0.2) Nucleated Red Blood Cells 0.1 % Sodium Level 143 mmol/L (136-145) Potassium Level 3.5 mmol/L (3.5-5.1) Chloride Level 107 mmol/L (98-107) Carbon Dioxide Level 24 mmol/L (20-31) Anion Gap 12 (5-15) Blood Urea Nitrogen 10 mg/dL (9-23) Creatinine 0.94 mg/dL (0.700-1.30) Glomerular Filtration Rate Calc 84 mL/min (>90) BUN/Creatinine Ratio 10.6 (10.0-20.0) Serum Glucose 104 mg/dL (74-106) Calcium Level 10.2 mg/dL (8.7-10.4) Total Bilirubin 1.0 mg/dL (0.2-1.0) Aspartate Amino Transferase (AST) 26 U/L (13-40) Alanine Aminotransferase (ALT) 23 U/L (7-40) Alkaline Phosphatase 96 U/L (46-116) B-Type Natriuretic Peptide 113.20 pg/mL (0-100) Total Protein 8.1 g/dL (5.7-8.2) Albumin 4.8 g/dL (3.2-4.8) Urine Color Colorless (Yellow) Urine Clarity Clear (Clear) Urine pH 6.5 (5.0-9.0) Urine Specific [place] 1.006 (1.001-1.035) Urine Protein Negative (Negative) Urine Ketones Negative (Negative) Urine Blood 1+ /uL (Negative) Urine Nitrite Negative (Negative) Urine Bilirubin Negative (Negative) Urine Urobilinogen Normal mg/dL (Negative) Urine Leukocyte Esterase Negative /uL (Negative) Urine RBC 4 /hpf (0 - 3) Urine Microscopic WBC < 1 /HPF (0-3) Urine Squamous Epithelial Cells None seen /hpf (<5) Urine Bacteria None seen /hpf (None Seen) Urine Glucose Normal mg/dL (Normal) Other Laboratory Tests 11/16/24 13:06 Brief Hx & Hospital Course: 74-year-old male with past medical history of hypertension presents with complaints of uncontrolled high blood pressure. 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 On arrival to the emergency department patient's blood pressure was noted to be 226/108. Patient also endorses dizziness. States he is compliant with taking his blood pressure medications. However does not know what medications he is on. At this time patient denies fevers, chills, shortness of breath, chest pain, palpitations, leg swelling. States dizziness has improved. He is admitted and evaluated by meta pantograph i engraver recommended to adjust his blood pressure medications. Patient is continued on his home blood pressure medications and in addition hydralazine and clonidine has been added. With these modalities blood pressure has improved. Today I have talked with the patient along with the general claims agent/nurse at bedside regarding his high blood pressure and adjusting his medications. I have advised him to check his blood pressure daily and to take the prescribed medications as well as his home blood pressure medications per his discharge med reconciliation list. Patient otherwise clinically doing well in the hospital. His symptoms resolved. Blood pressure is improved. MRI of the brain is normal. Therefore it is felt he could be safely discharged home. Patient verbalized understanding of his hospital diagnosis, treatment he received, discharge medications, discharge instructions and agree with the discharge follow-up plan of care as mentioned. Operations or Procedures APPROVED REPORT EXAM: Two-dimensional and M-mode echocardiogram with Doppler and color Doppler. Blood Pressure: 157/78 mmHg INDICATION Hypertension RISK FACTORS Height: 5'7", Weight: 177 DIMENSIONS LVDd 4.7 (3.8-5.7cm) LA (2D) 4.1 (1.9-4.0cm) Aortic Root 3.2 (2.0- 3.7cm) LVDs 2.9 (2.5-4.0cm) LA (MM) (1.9-4.0cm) Aortic Cusp Exc 1.3 (1.5- 2.0cm) EF (%) 68.0 (55-70%) Rt. Atrium 3.7 (1.9-4.0cm) Asc. Aorta 3.4 cm IVSd 1.3 (0.7-1.1cm) RV (D) 3.9 (1.8-2.4cm) PWd 1.2 (0.7-1.1cm) Mitral Valve Mitral Mitral Stenosis E wave 0.74m/s MV Mean GR. mmHg A wave 0.99m/s MV Peak GR. mmHg E/A ratio 0.7 2D MVA cm2 DECEL Time 162ms PRESS 1/2 Time ms Aortic Valve Aortic Valve Aortic Stenosis V1 1.55m/s AO Mean GR. 8mmHg V2 1.86m/s AO Peak GR. 14mmHg LVOT Diameter 1.8 (1.8-2.4cm) Doppler VANI 2.12cm2 Pulmonic Valve V2 0.91m/s Tricuspid Valve TR Velocity 2.78m/s RVSP 34mmHg Other Information Quality : Technically Limited Rhythm : Technically limited study due to body habitus. Conclusion lvef 60% mild to moderate LVH grade 1 diastolic dysfunction normal rv function no severe valve abnormaliteis noted SIGNED BY: CHRISTEL FARR MD SIGNED DATE/TIME: 11/17/24 0705 Condition at Discharge: Stable Final Diagnosis/Problems List HYPERTENSIVE URGENCY, MALIGNANT HYPERTENSION, DYSLIPIDEMIA, BPH Discharge Disposition: Home Discharge Instruct/Medications Diet: Consistent carbohydrate, Cardiac 2g Na,low cholest Activity: No Restrictions, As Tolerated Follow Up/Referral: PRIMARY CARE DOCTOR AFTER TWO WEEKS FOR BLOOD PRESSURE MANAGEMENT. FOLLOW UP WITH YOUR HER DR. FARR TO ADJUST HER BLOOD PRESSURE MEDICATIONS AND FURTHER MANAGEMENT Medications: PRESCRIBED AND PER YOUR DISCHARGE MED RECONCILIATION LIST/HOME MEDICATIONS New Medications: Clonidine Hydrochloride (Clonidine Hcl) 0.1 Mg Tab 0.1 MG PO TID PRN, #30 TAB TAKE IT NEEDED FOR SYSTOLIC BLOOD PRESSURE ABOVE 150 OR DIASTOLIC BLOOD PRESSURE ABOVE 90 Hydralazine Hcl (Hydralazine Hcl) 50 Mg Tab 1 TAB PO BID, #90 TAB 3 Refills Misc. Devices (Blood Pressure Monitor) Monitor Kit EA XX DAILY, #1 CHECK BLOOD PRESSURE DAILY AND KEEP SYSTOLIC BP 100-140 AND DIASTOLIC BP 60-80 Changed Medications: Lisinopril (Lisinopril) 40 Mg Tab 1 TAB PO DAILY@DINNER, #90 TAB 5 Refills (Changed from: DAILY; 30) Continued Medications: Alendronate Sodium (Alendronate Sodium) 70 Mg Tab 1 TAB PO QWEEKLY, #4 TAB 3 Refills Allopurinol (Zyloprim Tablet) 100 Mg Tb 1 TAB PO DAILY, #30 TAB 5 Refills Aspirin (Aspirin Ec) 81 Mg Tab 81 MG PO DAILY, TAB Atorvastatin Calcium (Lipitor) 10 Mg Tab 1 TAB PO QPM, #90 TAB 1 Refill Atorvastatin Calcium (Atorvastatin Calcium) 10 Mg Tab 1 TAB PO DAILY, #30 TAB 5 Refills Hydrochlorothiazide (Hydrochlorothiazide) 25 Mg Tab 1 TAB PO DAILY, #30 TAB 5 Refills (This prescription has been renewed) Levothyroxine Sodium (Levothyroxine Sodium) 25 Mcg Tab 1 TAB PO DAILY, #30 TAB 5 Refills Meclizine HCl (Meclizine) 25 Mg Chw 25 MG PO, CHW Metoprolol Succinate (Metoprolol Succinate Er) 25 Mg Tab 1 TAB PO DAILY, #30 TAB 1 Refill (This prescription has been renewed) Tamsulosin Hcl (Flomax) 0.4 Mg Cap 1 CAP PO DAILY, #30 CAP 11 Refills Discharge Statement: "Patient was advised to return to the ER or call 911 if any headaches, dizziness, shortness of breath, chest pain, abdominal pain, bleeding, fevers, or worsening of medical condition. Patient was counseled about treatment plan, medications, possible side effects, patientverbalized understanding. All questions were answered to the best of my ability. This discharge took greater then 30 minutes in planning, reviewing documentation, counseling the patient, and discussing with other team members." ASSESSMENT ASSESSMENT Assessment HYPERTENSIVE URGENCY, MALIGNANT HYPERTENSION, DYSLIPIDEMIA, BPH SUNSHINE NASCIMENTO MD Nov 17, 2024 15:15
== END 2024-11-17 19:00 | disposition home or self-care (01) | DRG 305 ==
LOC: ER 12:07 → OVERFLOW 16:19 → TELE-WESTW 21:15
PROVIDERS: ADMIT Hospitalist; ATTEND Hospitalist
DX: I16.0 Hypertensive urgency (principal); I12.9 Hypertensive chronic kidney disease with stage 1 through stage 4 chronic kidney disease, or unspecified chronic kidney disease; E66.9 Obesity, unspecified; I08.0 Rheumatic disorders of both mitral and aortic valves; N18.9 Chronic kidney disease, unspecified; N40.0 Benign prostatic hyperplasia without lower urinary tract symptoms; E78.5 Hyperlipidemia, unspecified; Z68.27 Body mass index [BMI] 27.0-27.9, adult; Z91.199 Patient's noncompliance with other medical treatment and regimen due to unspecified reason
CPT/HCPCS: 36415; 70450; 70460; 70551; 71045; 80053; 81001; 83880; 84484; 85025; 93306; 96374; G0378